=== PATIENT | male | born 1965 | race Two or more races ===

== ENCOUNTER → 2018-01-10 | Outpatient (CLI) | payer BC | END | disposition home or self-care (01) | LOC: LAB 13:27 | PROVIDERS: ATTEND Surgery | DX: K04.7 Periapical abscess without sinus (principal) | CPT/HCPCS: 87070 ==

== ENCOUNTER → 2018-01-13 | Outpatient (CLI) | payer BC ==
[~2018-01-13] MED LIST: IOHEXOL 300 MG/ML 100ML BOTTLE IJ ONE
== END | disposition home or self-care (01) ==
LOC: XYW 08:15 → ER 08:15 → EDSTATUS 14:54
DX: M79.89 Other specified soft tissue disorders (principal)
CPT/HCPCS: 70487; Q9967

== ENCOUNTER → 2018-02-09 | Emergency (ER) | payer BC ==
[2018-02-09 11:12] LABS: INR 1.05 (0.9-1.15); Prothrombin Time 11.4 sec (9.37-12.3)
[2018-02-09 11:37] LABS: Basophils # (auto) 0 uL; Basophils % (auto) 0.5 % (0.0-2.0); Eosinophils # (auto) 0.1 uL; Eosinophils % (auto) 1.5 % (0.0-7.0); Hematocrit 45.7 % (41.0-53.0); Hemoglobin 15.4 g/dL (13.5-17.5); Lymphocytes # (auto) 1.5 uL; Lymphocytes % (auto) 23.8 % (10.0-50.0); Mean Corpuscular Hemoglobin 29.8 pg (28.0-32.0); Mean Corpuscular Hgb Conc. 33.7 g/dL (32.0-36.0); Mean Corpuscular Volume 88.5 fL (80.0-100.0); Monocytes # (auto) 0.6 uL; Monocytes % (auto) 8.9 % (0.0-12.0); Neutrophils # (auto) 4.2 uL; Neutrophils % (auto) 65.3 % (37.0-80.0); Nucleated Red Blood Cells % 0.1 %; Platelet Count (auto) 408 10^3/uL (140-450); Red Blood Cells 5.17 10^6/uL (4.5-5.90); Red Cell Distribution Width 13.9 % (11.8-14.3); White Blood Cell 6.4 10^3/uL (4.4-10.8)
== END | disposition left against medical advice (07) ==
LOC: ER 10:20
DX: R07.89 Other chest pain (principal); Z53.21 Procedure and treatment not carried out due to patient leaving prior to being seen by health care provider
CPT/HCPCS: 36415; 71045; 85025; 85610; 85652; 93005

== ENCOUNTER → 2018-04-19 | Outpatient (CLI) | payer BC ==
[~2018-04-19] MED LIST changes: -IOHEXOL 300 MG/ML 100ML BOTTLE IJ ONE; +IOHEXOL 300 MG/ML 75ml BOTTLE IJ ONE
== END | disposition home or self-care (01) ==
LOC: XYW 10:55
PROVIDERS: ATTEND Internal Medicine
DX: M27.40 Unspecified cyst of jaw (principal)
CPT/HCPCS: 70487; Q9967

== ENCOUNTER → 2018-08-17 | Outpatient (CLI) | payer BC ==
[~2018-08-17] MED LIST changes: +IOHEXOL 300 MG/ML 100ML BOTTLE IJ ONE; -IOHEXOL 300 MG/ML 75ml BOTTLE IJ ONE
[2018-08-17 10:29] LABS: Basophils # (auto) 0 uL; Basophils % (auto) 0.4 % (0.0-2.0); Eosinophils # (auto) 0 uL; Eosinophils % (auto) 0.4 % (0.0-7.0); Hematocrit 52.2 % (41.0-53.0); Hemoglobin 17.4 g/dL (13.5-17.5); Lymphocytes # (auto) 1.5 uL; Mean Corpuscular Hemoglobin 29.9 pg (28.0-32.0); Mean Corpuscular Hgb Conc. 33.3 g/dL (32.0-36.0); Mean Corpuscular Volume 89.7 fL (80.0-100.0); Monocytes # (auto) 0.4 uL; Monocytes % (auto) 6.2 % (0.0-12.0); Neutrophils # (auto) 4.8 uL; Nucleated Red Blood Cells % 0.1 %; Platelet Count (auto) 343 10^3/uL (140-450); Red Blood Cells 5.82 10^6/uL (4.5-5.90); Red Cell Distribution Width 14.5 % (11.8-14.3); White Blood Cell 6.7 10^3/uL (4.4-10.8)
[2018-08-17 11:18] LABS: Albumin 4.4 g/dL (3.4-5.0); Calcium 9.5 mg/dL (8.5-10.1); Potassium 4.2 mmol/L (3.5-5.1)
[2018-08-17 11:22] LABS: BUN/Creatinine Ratio 22.1; Bilirubin, Total 1.7 mg/dL (0.2-1.0)
== END | disposition home or self-care (01) ==
LOC: XYW 09:50
PROVIDERS: ATTEND Internal Medicine
DX: M27.40 Unspecified cyst of jaw (principal); F32.9 Major depressive disorder, single episode, unspecified
CPT/HCPCS: 36415; 70487; 80053; 80061; 82306; 83036; 85025; Q9967

== ENCOUNTER → 2018-11-23 | Outpatient (CLI) | payer BC | END | disposition home or self-care (01) | LOC: XYW 09:00 | PROVIDERS: ATTEND Internal Medicine | DX: M27.40 Unspecified cyst of jaw (principal); M27.1 Giant cell granuloma, central | CPT/HCPCS: 70487; Q9967 ==

== ENCOUNTER → 2019-01-17 | Outpatient (CLI) | payer BC ==
[2019-01-17 12:59] LABS: Basophils # (auto) 0 uL; Basophils % (auto) 0.4 % (0.0-2.0); Eosinophils # (auto) 0 uL; Eosinophils % (auto) 0.4 % (0.0-7.0); Hematocrit 50.8 % (41.0-53.0); Hemoglobin 17.1 g/dL (13.5-17.5); Lymphocytes # (auto) 1.4 uL; Lymphocytes % (auto) 22.7 % (10.0-50.0); Mean Corpuscular Hgb Conc. 33.6 g/dL (32.0-36.0); Mean Corpuscular Volume 89.2 fL (80.0-100.0); Monocytes # (auto) 0.4 uL; Neutrophils # (auto) 4.2 uL; Neutrophils % (auto) 70.5 % (37.0-80.0); Nucleated Red Blood Cells % 0.1 %; Platelet Count (auto) 336 10^3/uL (140-450); Red Cell Distribution Width 14.3 % (11.8-14.3)
[2019-01-17 13:09] LABS: BUN/Creatinine Ratio 19.5; Potassium 4.2 mmol/L (3.5-5.1)
[2019-01-17 13:11] LABS: Bilirubin, Total 0.8 mg/dL (0.2-1.0); Total Protein 8.3 g/dL (6.4-8.2)
[2019-01-17 13:20] LABS: INR 0.93 (0.9-1.15); Partial Thromboplastin Time 28.9 sec (23.78-33.04)
== END | disposition home or self-care (01) ==
LOC: LAB 12:52
PROVIDERS: ATTEND Physician Assistant
DX: Z01.818 Encounter for other preprocedural examination (principal)
CPT/HCPCS: 36415; 80053; 85025; 85610; 85730

== ENCOUNTER → 2020-09-19 | Outpatient (CLI) | payer OTHER | END | disposition home or self-care (01) | LOC: LAB 10:15 | PROVIDERS: ATTEND Nurse Practitioner Family | DX: Z20.828 Contact with and (suspected) exposure to other viral communicable diseases (principal) | CPT/HCPCS: 36415; 87426; 87804; C9803; U0003 ==